=== PATIENT | female | born 1940 | race Caucasian/White ===

== ENCOUNTER → 2018-01-27 | Outpatient (CLI) | payer OTHER ==
--- NOTE | ~2018-01-27 | 2DMMODE ---
[facility] [place] [place] [address] 2 D/M-MODE ECHOCARDIOGRAM Name: BE BALDERAS Room #: [facility]#: [id number] Admission: 01/27/18 Attend Phys: Yemi Taylor MD Discharge: Date of : 40 Date of Service: 01/27/18 0957 Report #: [id number] THIS REPORT FOR: //name// APPROVED REPORT Study performed: 01/27/2018 09:11:05 EXAM: Comprehensive 2D, Doppler, and color-flow Echocardiogram Patient Location: Out-Patient Status: routine BSA: 1.72 HR: 90 bpm BP: 163/95 mmHg Rhythm: NSR Other Information Study Quality: Adequate Indications Abnormal EKG, Pre-Op. Hx: HTN, HLP 2D Dimensions RVDd: 27.85 mm IVSd: 9.23 (7-11mm) LVOT Diam: 18.93 (18-24mm) LVDd: 38.40 mm PWd: 7.99 (7-11mm) Ascending Ao: 33.13 (22-36mm) LVDs: 24.72 (25-40mm) Aortic Root: 34.77 mm Volumes Left Atrial Volume (Systole) Single Plane 4CH: 41.73 mL Single Plane 2CH: 38.71 mL LA ESV Index: 25.00 mL/m2 Aortic Valve AoV Peak Kingsley.: 1.53 m/s AO Peak Gr.: 9.48 mmHg LVOT Max P.97 mmHg LVOT Max V: 1.12 m/s HANS Vmax: 2.05 cm2 Mitral Valve E/A Ratio: 0.7 MV Decel. Time: 154.96 ms MV E Max Kingsley.: 0.80 m/s [facility] [address] [place] [address] 2 D/M-MODE ECHOCARDIOGRAM Name: BE BALDERAS Room #: [facility]#: [id number] Admission: 01/27/18 Attend Phys: Yemi Taylor MD Discharge: Date of : 40 Date of Service: 01/27/18 0957 Report #: [id number] MV A Kingsley.: 1.21 m/s MV PHT: 44.94 ms IVRT: 86.51 ms Pulmonary Valve PV Peak Kingsley.: 0.92 m/s PV Peak Gr.: 3.41 mmHg Tricuspid Valve TR Peak Kingsley.: 2.01 m/s RAP Estimate: 5.00 mmHg TR Peak Gr.: 16.18 mmHg PA Pressure: 22.00 mmHg Left Ventricle The left ventricle is normal size. There is normal LV segmental wall motion. Moderate basal septal hypertrophy is present. Left ventricular systolic function is hyperdynamic. LVEF is 65-70%. Mild diastolic dysfunction is present (impaired relaxation pattern). Right Ventricle The right ventricle is normal size. The right ventricular systolic function is normal. Atria The left atrium size is normal. The right atrium size is normal. Aortic Valve The Aortic valve is sclerotic. No aortic regurgitation is present. There is no aortic valvular stenosis. Mitral Valve Mitral valve leaflets are calcified. Moderate mitral annular calcification. Mild mitral regurgitation. No evidence of mitral valve stenosis. Tricuspid Valve The tricuspid valve is normal in structure. Trace tricuspid regurgitation. Estimated PAP is 20-25mmHg. Pulmonic Valve The pulmonary valve is normal in structure. Trace pulmonic regurgitation. Great Vessels The aortic root is normal in size. The ascending aorta is normal in [facility] [address] [address] 2 D/M-MODE ECHOCARDIOGRAM Name: BE BALDERAS Room #: [facility]#: [id number] Admission: 01/27/18 Attend Phys: Yemi Taylor MD Discharge: Date of : 40 Date of Service: 01/27/18 0957 Report #: [id number] size. IVC is normal in size and collapses >50% with inspiration. Pericardium There is no pericardial effusion. <Conclusion> The left ventricle is normal size. Left ventricular systolic function is hyperdynamic. Mild diastolic dysfunction is present (impaired relaxation pattern). The right ventricle is normal size. The left atrium size is normal. The Aortic valve is sclerotic. Moderate mitral annular calcification. Mild mitral regurgitation. Trace tricuspid regurgitation. Estimated PAP is 20-25mmHg. <ELECTRONICALLY SIGNED> By: Yemi Taylor MD 01/27/18956 6 6 Yemi Taylor MD /INF
== END ==
LOC: NUC 06:25 → RAD 07:15 → NUC 07:15
DX: Z01.812 Encounter for preprocedural laboratory examination (principal); I10 Essential (primary) hypertension; I34.0 Nonrheumatic mitral (valve) insufficiency; I35.8 Other nonrheumatic aortic valve disorders; R94.31 Abnormal electrocardiogram [ECG] [EKG]